=== PATIENT | male | born 1990 | race African-American/Black ===

== ENCOUNTER 2019-01-22 09:34 | Emergency (ER) | payer SELFPAY ==
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
== END 2019-01-22 10:16 | disposition home or self-care (01) ==
LOC: ERS 09:34
DX: S16.1XXA Strain of muscle, fascia and tendon at neck level, initial encounter (principal); S00.01XA Abrasion of scalp, initial encounter; S80.212A Abrasion, left knee, initial encounter; F17.210 Nicotine dependence, cigarettes, uncomplicated; V89.2XXA Person injured in unspecified motor-vehicle accident, traffic, initial encounter
CPT/HCPCS: 70450; 71260; 72125; 74177; G0390

== ENCOUNTER 2020-05-19 09:39 | Emergency (ER) | payer SELFPAY | END 2020-05-19 12:02 | disposition left against medical advice (07) | LOC: ERS 09:39 | DX: Z53.21 Procedure and treatment not carried out due to patient leaving prior to being seen by health care provider (principal) ==

== ENCOUNTER 2020-11-08 06:13 | Emergency (ER) | payer SELFPAY ==
[2020-11-08] MEDS ORDERED: Ibuprofen 200 MG TAB ONE (06:25)
[2020-11-08] MEDS ORDERED: HYDROcodone/Acetaminophen 5/325 mg Tablet ONE (06:25)
== END 2020-11-08 06:47 | disposition home or self-care (01) ==
LOC: ERS 06:13
DX: K03.81 Cracked tooth (principal); K02.9 Dental caries, unspecified; F17.200 Nicotine dependence, unspecified, uncomplicated
CPT/HCPCS: 99283

== ENCOUNTER 2021-05-01 03:47 | Emergency (ER) | payer SELFPAY ==
[2021-05-01] MEDS ORDERED: HYDROcodone/Acetaminophen 5/325 mg Tablet ONE (04:15)
== END 2021-05-01 07:00 | disposition home or self-care (01) ==
LOC: ERS 03:47
DX: K03.81 Cracked tooth (principal); F17.210 Nicotine dependence, cigarettes, uncomplicated
CPT/HCPCS: 99282

== ENCOUNTER 2021-08-01 18:48 | Emergency (ER) | payer SELFPAY ==
[2021-08-01] MEDS ORDERED: Metoclopramide HCl 10 MG TAB ONE (19:32)
[2021-08-01] MEDS ORDERED: Ketorolac Tromethamine 30 MG/ML VIAL ONE (19:32)
== END 2021-08-01 21:44 | disposition home or self-care (01) ==
LOC: ERS 18:48
DX: R51.9 Headache, unspecified (principal); F17.210 Nicotine dependence, cigarettes, uncomplicated
CPT/HCPCS: 96372; 99283; J1885

== ENCOUNTER 2021-08-09 09:02 | Emergency (ER) | payer SELFPAY | END 2021-08-09 10:10 | disposition left against medical advice (07) | LOC: ERS 09:02 | DX: Z53.21 Procedure and treatment not carried out due to patient leaving prior to being seen by health care provider (principal) ==

== ENCOUNTER 2021-09-01 02:41 | Emergency (ER) | payer SELFPAY | END 2021-09-01 03:22 | disposition home or self-care (01) | LOC: ERS 02:41 | DX: K08.89 Other specified disorders of teeth and supporting structures (principal); F17.210 Nicotine dependence, cigarettes, uncomplicated | CPT/HCPCS: 99283 ==